=== PATIENT | male | born 1990 | race Caucasian/White ===

== ENCOUNTER 2017-02-09 00:05 | Emergency (ER) | payer MEDICAID ==
[~2017-02-09] VITALS: Ht 177.8 cm; Wt 90.7 kg
--- NOTE | 2017-02-09 00:07 | NUR ---
Patient to ER bed 7 to gown for evaluation. Side rails up. Report given to Filipe OLIVARES.
[2017-02-09 00:10] VITALS: BP 127/80; PULSE 89; RESP 18; TEMP 98.3; O2SAT 99
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
--- NOTE | 2017-02-09 00:20 | NUR ---
MD Worley at bedside examining pt
--- NOTE | 2017-02-09 00:20 | NUR ---
Sudeep Jasso were called and will be coming to ER soon.
[2017-02-09] MEDS ORDERED: DIPH-TET-PERTUS Vaccine 0.5 ML VIAL (ADACEL) I.M. ONE (00:30)
[2017-02-09] MEDS ORDERED: LIDOCAINE 1% 10 MG/ML, 20 ML MDV INJ ONE (00:30)
--- NOTE | 2017-02-09 01:20 | NUR ---
at bedside and patient refused to file report.
--- NOTE | 2017-02-09 01:20 | NUR ---
special technical operations officer arrived at [facility], at bedside discussing with pt and his mother
[2017-02-09 01:30] VITALS: BP 122/78; PULSE 88; RESP 18; TEMP 98.1; O2SAT 100
--- NOTE | 2017-02-09 01:30 | NUR ---
Patient given written and verbal discharge instructions and verbalizes understanding. ER MD discussed with patient the results and treatment provided. Patient in stable condition. ID arm band removed. Rx of Motrin, Bactrim given. Patient educated on pain management and to follow up with PMD. Pain Scale 0/10. Opportunity for questions provided and answered.
== END 2017-02-09 01:30 | disposition home or self-care (01) ==
LOC: SED 00:05
DX: S01.01XA Laceration without foreign body of scalp, initial encounter (principal); S91.011A Laceration without foreign body, right ankle, initial encounter; W25.XXXA Contact with sharp glass, initial encounter; Y93.89 Activity, other specified; Y99.8 Other external cause status; Y92.89 Other specified places as the place of occurrence of the external cause
CPT/HCPCS: 12002; 90471; 90715; 99283; J2001

== ENCOUNTER 2017-04-23 22:47 | Emergency (ER) | payer MEDICAID ==
[~2017-04-23] VITALS: Ht 185.4 cm; Wt 86.2 kg
[2017-04-23 23:00] VITALS: BP_SYST 136
[2017-04-23 23:57] VITALS: BP_SYST 145
== END 2017-04-23 23:57 | disposition home or self-care (01) ==
LOC: SED 22:47
DX: S01.111A Laceration without foreign body of right eyelid and periocular area, initial encounter (principal); S01.412A Laceration without foreign body of left cheek and temporomandibular area, initial encounter; Y04.0XXA Assault by unarmed brawl or fight, initial encounter; Y93.89 Activity, other specified; Y92.89 Other specified places as the place of occurrence of the external cause; Y99.8 Other external cause status
CPT/HCPCS: 70450-TC; 70486-TC; 99284

== ENCOUNTER 2017-05-07 20:25 | Emergency (ER) | payer MEDICAID ==
[~2017-05-07] VITALS: Ht 185.4 cm; Wt 88.5 kg
--- NOTE | 2017-05-07 20:30 | NUR ---
Patient to ER bed H1 to gown for evaluation. Side rails up.
--- NOTE | 2017-05-07 20:31 | NUR ---
KELLEE Marmolejo at bedside examining patient.
--- NOTE | 2017-05-07 20:32 | NUR ---
Patient AAO x4, sitting in bed in hallway, here for suture removal from lac repair on right side of patient's face, skin pink and edges well approximated, no redness, no swelling, and no pain or drainage to area. Will continue to monitor.
--- NOTE | 2017-05-07 20:35 | NUR ---
RN PERINATAL at bedside removing sutures, patient tolerating well.
[2017-05-07 20:37] VITALS: BP_SYST 128
[2017-05-07 20:41] VITALS: BP_SYST 128
--- NOTE | 2017-05-07 20:41 | NUR ---
Patient given written and verbal discharge instructions and verbalizes understanding. ER MD discussed with patient the results and treatment provided. Patient in stable condition. ID arm band removed. Rx of bacitracin given. Patient educated on pain management and to follow up with PMD. Pain Scale 0/10. Opportunity for questions provided and answered.
[2017-05-07] MEDS ORDERED: BACITRACIN 1 GM OINT TP ONE (20:45)
== END 2017-05-07 20:41 | disposition home or self-care (01) ==
LOC: SED 20:25
DX: S01.411D Laceration without foreign body of right cheek and temporomandibular area, subsequent encounter (principal); S01.111D Laceration without foreign body of right eyelid and periocular area, subsequent encounter; F17.210 Nicotine dependence, cigarettes, uncomplicated; Y04.0XXD Assault by unarmed brawl or fight, subsequent encounter; Y92.89 Other specified places as the place of occurrence of the external cause; Y99.8 Other external cause status
CPT/HCPCS: 99282

== ENCOUNTER 2017-10-30 20:11 | Emergency (ER) | payer MEDICAID ==
[~2017-10-30] VITALS: Ht 182.9 cm; Wt 86.2 kg
[2017-10-30 20:16] VITALS: BP_SYST 120
[2017-10-30 23:16] VITALS: BP_SYST 116
== END 2017-10-30 23:30 | disposition home or self-care (01) ==
LOC: SED 20:11
DX: M54.9 Dorsalgia, unspecified (principal); F17.210 Nicotine dependence, cigarettes, uncomplicated; V49.9XXA Car occupant (driver) (passenger) injured in unspecified traffic accident, initial encounter; Y93.89 Activity, other specified; Y92.488 Other paved roadways as the place of occurrence of the external cause; Y99.8 Other external cause status
CPT/HCPCS: 72125-TC; 72128; 72131; 99284

== ENCOUNTER 2018-03-23 14:19 | Emergency (ER) | payer MEDICAID ==
[~2018-03-23] VITALS: Ht 185.4 cm; Wt 90.7 kg
[2018-03-23 14:31] VITALS: BP_SYST 120
[2018-03-23] MEDS ORDERED: ONDANSETRON 4 MG ODT TAB PO ONE (15:00)
[2018-03-23 15:11] VITALS: BP_SYST 114
== END 2018-03-23 15:14 ==
LOC: SED 14:19
DX: F11.23 Opioid dependence with withdrawal (principal); R11.2 Nausea with vomiting, unspecified
CPT/HCPCS: 99283; Q0162

== ENCOUNTER 2018-06-04 11:14 | Emergency (ER) | payer MEDICAID ==
[~2018-06-04] VITALS: Ht 182.9 cm; Wt 90.7 kg
[2018-06-04 11:14] VITALS: BP_SYST 134
[2018-06-04] MEDS ORDERED: ONDANSETRON HCL 4 MG/2 ML VIAL IVP ONE (12:00)
[2018-06-04] MEDS ORDERED: DIPH-TET-PERTUS Vaccine 0.5 ML VIAL (ADACEL) I.M. ONE (12:00)
[2018-06-04] MEDS ORDERED: NACL 0.9% 1,000 ML IV ONE (12:00)
[2018-06-04] MEDS ORDERED: IOHEXOL 100 ML IV ONE (12:24)
[2018-06-04 13:25] LABS: BASOPHILS # (AUTO) 0.1 K/uL (0.0-0.2); BASOPHILS % (AUTO) 0.9 % (0.0-2.0); EOSINOPHILS # (AUTO) 0.2 K/uL (0.0-0.4); EOSINOPHILS % (AUTO) 2.5 % (0.0-4.0); HEMATOCRIT 34.8 % (36-54); HEMOGLOBIN 11.9 g/dL (14.0-18.0); LYMPHOCYTES # (AUTO) 1.7 K/uL (1.0-5.5); LYMPHOCYTES % (AUTO) 22.9 % (20.5-51.5); MEAN CORPUSCULAR HEMOGLOBIN 30 pg (27-31); MEAN CORPUSCULAR HGB CONC 34 % (32-36); MEAN CORPUSCULAR VOLUME 88 fL (79.0-98.0); MONOCYTES # (AUTO) 0.5 K/uL (0.0-1.0); MONOCYTES % (AUTO) 6.3 % (1.7-9.3); NEUTROPHILS # (AUTO) 5.1 K/uL (1.8-7.7); NEUTROPHILS % (AUTO) 67.4 % (40.0-70.0); PLATELET COUNT (AUTO) 266 K/uL (130-430); RED BLOOD CELL COUNT(AUTO) 3.95 MIL/uL (4.2-6.2); RED CELL DISTRIBUTION WIDTH 14.1 % (9.0-15.0); WHITE BLOOD COUNT (AUTO) 7.6 K/uL (4.8-10.8)
[2018-06-04 13:30] LABS: ALANINE AMINOTRANSFERASE 36 U/L (12-78); ALBUMIN 3.1 g/dL (3.4-4.8); ANION GAP 5 (5-15); ASPARTATE AMINOTRANSFERASE 37 U/L (10-37); CALCIUM 8.2 mg/dL (8.4-11.0); CHLORIDE 107 mmol/L (98-107); CREATININE 1.05 mg/dL (0.55-1.30); GLUCOSE 95 mg/dL (70-99); POTASSIUM 3.6 mmol/L (3.5-5.1); SODIUM SERUM 142 mmol/L (136-145); TOTAL BILIRUBIN 0.3 mg/dL (0.0-1.0); UREA NITROGEN, BLOOD 15 mg/dL (8-21)
[2018-06-04 13:32] LABS: ALCOHOL, BLOOD < 3 mg/dL (<10); GFR AFRICAN AMERICAN 109 mL/min (>90)
[2018-06-04 16:50] VITALS: BP_SYST 141
== END 2018-06-04 16:50 | disposition home or self-care (01) ==
LOC: SED 11:14
DX: S13.4XXA Sprain of ligaments of cervical spine, initial encounter (principal); S20.212A Contusion of left front wall of thorax, initial encounter; S30.1XXA Contusion of abdominal wall, initial encounter; S80.11XA Contusion of right lower leg, initial encounter; S40.812A Abrasion of left upper arm, initial encounter; S40.811A Abrasion of right upper arm, initial encounter; S09.90XA Unspecified injury of head, initial encounter; F17.210 Nicotine dependence, cigarettes, uncomplicated; R42 Dizziness and giddiness; V00.131A Fall from skateboard, initial encounter; Y93.51 Activity, roller skating (inline) and skateboarding; Y92.89 Other specified places as the place of occurrence of the external cause; Y99.8 Other external cause status
CPT/HCPCS: 36415; 70450; 71045; 72125; 73590; 73600; 74177; 80053; 85025; 90471; 90715; 93005; 96361; 96374; 99285; G0482; J2405; J7030; Q9967

== ENCOUNTER 2018-06-21 18:02 | Inpatient (IN) | payer MEDICAID ==
[~2018-06-21] VITALS: Ht 185.4 cm; Wt 94.1 kg
[2018-06-21 18:02] VITALS: BP_SYST 146
[2018-06-21 18:53] LABS: BASOPHILS % (AUTO) 0.3 % (0.0-2.0); EOSINOPHILS # (AUTO) 0.1 K/uL (0.0-0.4); EOSINOPHILS % (AUTO) 0.8 % (0.0-4.0); HEMATOCRIT 37.6 % (36-54); HEMOGLOBIN 13.1 g/dL (14.0-18.0); LYMPHOCYTES % (AUTO) 7.1 % (20.5-51.5); MEAN CORPUSCULAR HEMOGLOBIN 31 pg (27-31); MEAN CORPUSCULAR HGB CONC 35 % (32-36); MEAN CORPUSCULAR VOLUME 87 fL (79.0-98.0); MONOCYTES # (AUTO) 0.7 K/uL (0.0-1.0); MONOCYTES % (AUTO) 5.2 % (1.7-9.3); NEUTROPHILS # (AUTO) 12.2 K/uL (1.8-7.7); NEUTROPHILS % (AUTO) 86.6 % (40.0-70.0); PLATELET COUNT (AUTO) 336 K/uL (130-430); RED CELL DISTRIBUTION WIDTH 13.4 % (9.0-15.0)
[2018-06-21 18:59] LABS: ANION GAP 3 (5-15); CALCIUM 8.5 mg/dL (8.4-11.0); CHLORIDE 102 mmol/L (98-107); CREATININE 0.87 mg/dL (0.55-1.30); GLUCOSE 88 mg/dL (70-99); POTASSIUM 3.7 mmol/L (3.5-5.1); SODIUM SERUM 135 mmol/L (136-145); UREA NITROGEN, BLOOD 15 mg/dL (8-21)
[2018-06-21 19:00] LABS: GFR AFRICAN AMERICAN 135 mL/min (>90); PROTHROMBIN TIME 9.9 SECS (9.5-12.5)
[2018-06-21] MEDS ORDERED: ACETAMINOPHEN 500 MG TABLET PO ONE (19:00)
[2018-06-21] MEDS ORDERED: NACL 0.9% 1,000 ML IV ONE ×2 (19:00→20:15)
[2018-06-21 19:15] LABS: ALANINE AMINOTRANSFERASE 32 U/L (12-78); ALBUMIN 3.5 g/dL (3.4-4.8); ASPARTATE AMINOTRANSFERASE 22 U/L (10-37); FREE T4 (FREE THYROXINE) 0.6 ng/dL (0.6-1.6); TOTAL BILIRUBIN 0.7 mg/dL (0.0-1.0)
[2018-06-21 19:17] LABS: ALCOHOL, BLOOD < 3 mg/dL (<10)
[2018-06-21] MEDS ORDERED: VANCOMYCIN HCL 1,000 MG in NS 250 ML IV ONE (20:15)
[2018-06-21] MEDS ORDERED: KETOROLAC TROMETHAMINE 30 MG VIAL IVP ONE (20:15)
[2018-06-21] MEDS ORDERED: PIPERACILLIN/TAZO 3.375 GM in NS 50 ML IV ONE (20:15)
[2018-06-21] MEDS ORDERED: VANCOMYCIN HCL 1000 MG/VIAL IV ONE (20:17)
[2018-06-21] MEDS ORDERED: PIPERACILLIN/TAZOBACTAM 3.375 GM/VIAL (ZOSYN) IV ONE ×2 (20:17→22:34)
[2018-06-21] MEDS ORDERED: HYDROcodone/ACETAMIN 5-325 MG TAB (NORCO/ VICODIN) PO PRN (20:30)
[2018-06-21] MEDS ORDERED: LORazepam 1 MG TABLET PO SCH (20:30)
[2018-06-21 21:00] LABS: BILIRUBIN,URINE NEGATIVE (NEGATIVE); BLOOD, URINE NEGATIVE (NEGATIVE); CLARITY/URINE CLEAR (CLEAR); COLOR,URINE YELLOW (YELLOW); GLUCOSE,URINE NEGATIVE (NEGATIVE); KETONES,URINE TRACE (NEGATIVE); LEUKOCYTE ESTERASE ,URINE NEGATIVE (NEGATIVE); NITRITE, URINE NEGATIVE (NEGATIVE); PROTEIN URINE NEGATIVE (NEGATIVE); UROBILINOGEN,URINE 0.2 (0.2-1.0)
[2018-06-21] MEDS ORDERED: MORPHINE 2 MG/ML INJ. SYRINGE IVP ONE (21:00)
[2018-06-21 21:09] LABS: BARBITURATE, URINE NEGATIVE (NEG <=200); METHAMPHETAMINES SCREEN,URINE POSITIVE (NEG <=500); URINE AMPHETAMINE POSITIVE (NEG <=500)
[2018-06-21 21:10] LABS: BENZODIAZEPINE, URINE NEGATIVE (NEG <=150); CANNABINOID, URINE NEGATIVE (NEG <=50); COCAINE, URINE NEGATIVE (NEG <=150); OPIATE, URINE POSITIVE (NEG <=100); PHENCYCLIDINE SCREEN,URINE NEGATIVE (NEG <=25); UR TRICYCLIC ANTIDEPRESSANTS NEGATIVE (NEG <=300); URINE METHADONE NEGATIVE (NEG <=200); URINE OXYCODONE SCREEN NEGATIVE (NEG <=100); URINE PROPOXYPHENE SCREEN NEGATIVE (NEG <=300)
[2018-06-21 21:24] VITALS: BP_SYST 137
[2018-06-21] MEDS: NACL 0.9% 1,000 ML IV SCH (21:55)
[2018-06-22 00:09] VITALS: BP_SYST 130
[2018-06-22] MEDS: PIPERACILLIN/TAZO 3.375/DEX-IS 50 ML IV SCH ×4 (00:29→17:17)
[2018-06-22] MEDS ORDERED: LORazepam 1 MG TABLET PO SCH (06:00)
[2018-06-22] MEDS: LORazepam 2 MG/ML VIAL IVP PRN ×2 (06:05→16:24)
[2018-06-22] MEDS: NACL 0.9% 1,000 ML IV SCH ×4 (06:10→23:59)
[2018-06-22 08:00] VITALS: BP_SYST 129
[2018-06-22] MEDS: VANCOMYCIN HCL 1,500 MG in NS 250 ML IV SCH ×2 (11:41→18:42)
[2018-06-22 12:15] VITALS: BP_SYST 127
[2018-06-22] MEDS ORDERED: MORPHINE 2 MG/ML INJ. SYRINGE ONE (13:56)
[2018-06-22] MEDS ORDERED: MUPIROCIN 2% TOPICAL OINTMENT 22 GM NS PRN (14:00)
[2018-06-22] MEDS ORDERED: ZOLPIDEM TARTRATE 5 MG TABLET PO PRN (14:00)
[2018-06-22] MEDS ORDERED: ACETAMINOPHEN 325 MG TABLET PO PRN (14:00)
[2018-06-22] MEDS ORDERED: MAGNESIUM SULFATE 50 ML IV PRN (14:00)
[2018-06-22] MEDS ORDERED: POTASSIUM CHLORIDE 20 MEQ TAB.PRT.SR PO PRN (14:00)
[2018-06-22] MEDS ORDERED: DOCUSATE SODIUM 100 MG CAPSULE PO PRN (14:00)
[2018-06-22] MEDS ORDERED: ONDANSETRON HCL 4 MG/2 ML VIAL IVP PRN (14:00)
[2018-06-22] MEDS ORDERED: FAMOTIDINE 20 MG TABLET PO ONE (14:30)
[2018-06-22] MEDS ORDERED: LACTULOSE 20 GM/30 ML UDC PO ONE (14:30)
[2018-06-22 14:34] LABS: CALCIUM 8.6 mg/dL (8.4-11.0); CREATININE 1.13 mg/dL (0.55-1.30); POTASSIUM 3.5 mmol/L (3.5-5.1)
[2018-06-22 15:04] LABS: BASOPHILS % (AUTO) 0.2 % (0.0-2.0); EOSINOPHILS # (AUTO) 0.1 K/uL (0.0-0.4); EOSINOPHILS % (AUTO) 0.6 % (0.0-4.0); HEMATOCRIT 42.8 % (36-54); HEMOGLOBIN 14.8 g/dL (14.0-18.0); LYMPHOCYTES # (AUTO) 1.9 K/uL (1.0-5.5); LYMPHOCYTES % (AUTO) 10.4 % (20.5-51.5); MEAN CORPUSCULAR HEMOGLOBIN 30 pg (27-31); MEAN CORPUSCULAR HGB CONC 34 % (32-36); MEAN CORPUSCULAR VOLUME 88 fL (79.0-98.0); MONOCYTES % (AUTO) 5.3 % (1.7-9.3); NEUTROPHILS % (AUTO) 83.5 % (40.0-70.0); PLATELET COUNT (AUTO) 366 K/uL (130-430); RED BLOOD CELL COUNT(AUTO) 4.87 MIL/uL (4.2-6.2); RED CELL DISTRIBUTION WIDTH 13.4 % (9.0-15.0)
[2018-06-22] MEDS: DIPHENHYDRAMINE HCL 25 MG CAPSULE PO SCH ×2 (16:23→21:13)
[2018-06-22 16:25] VITALS: BP_SYST 108
[2018-06-22] MEDS ORDERED: cloNIDine HCL 0.1 MG TABLET ONE (18:18)
[2018-06-22] MEDS ORDERED: FAMOTIDINE 20 MG TABLET PO SCH (21:00)
[2018-06-22] MEDS: FAMOTIDINE 20 MG TABLET PO SCH (21:13)
[2018-06-22] MEDS: LACTULOSE 20 GM/30 ML UDC PO SCH (21:13)
[2018-06-22] MEDS: MORPHINE 2 MG/ML INJ. SYRINGE IVP PRN (22:14)
[2018-06-22 22:15] VITALS: BP_SYST 125
[2018-06-23] VITALS: BP_SYST 137
[2018-06-23] MEDS: MORPHINE 2 MG/ML INJ. SYRINGE IVP PRN ×3 (00:53→17:34)
[2018-06-23] MEDS: NACL 0.9% 1,000 ML IV SCH ×2 (03:14→08:57)
[2018-06-23] MEDS: VANCOMYCIN HCL 1,500 MG in NS 250 ML IV SCH ×2 (03:14→10:56)
[2018-06-23] MEDS: LORazepam 2 MG/ML VIAL IVP PRN (04:42)
[2018-06-23 05:29] LABS: BASOPHILS # (AUTO) 0.1 K/uL (0.0-0.2); BASOPHILS % (AUTO) 0.7 % (0.0-2.0); EOSINOPHILS # (AUTO) 0.1 K/uL (0.0-0.4); HEMATOCRIT 40.5 % (36-54); HEMOGLOBIN 13.6 g/dL (14.0-18.0); LYMPHOCYTES # (AUTO) 1.8 K/uL (1.0-5.5); LYMPHOCYTES % (AUTO) 15.8 % (20.5-51.5); MEAN CORPUSCULAR HEMOGLOBIN 30 pg (27-31); MEAN CORPUSCULAR HGB CONC 34 % (32-36); MEAN CORPUSCULAR VOLUME 88 fL (79.0-98.0); MONOCYTES # (AUTO) 0.6 K/uL (0.0-1.0); MONOCYTES % (AUTO) 5.4 % (1.7-9.3); NEUTROPHILS # (AUTO) 8.7 K/uL (1.8-7.7); NEUTROPHILS % (AUTO) 77.1 % (40.0-70.0); PLATELET COUNT (AUTO) 333 K/uL (130-430); RED BLOOD CELL COUNT(AUTO) 4.58 MIL/uL (4.2-6.2); RED CELL DISTRIBUTION WIDTH 13.5 % (9.0-15.0); WHITE BLOOD COUNT (AUTO) 11.3 K/uL (4.8-10.8)
[2018-06-23 05:43] LABS: CALCIUM 8.5 mg/dL (8.4-11.0); CREATININE 0.9 mg/dL (0.55-1.30); POTASSIUM 3.4 mmol/L (3.5-5.1)
[2018-06-23 05:49] LABS: PHOSPHORUS 2.5 mg/dL (2.7-4.5)
[2018-06-23] MEDS: PIPERACILLIN/TAZO 3.375/DEX-IS 50 ML IV SCH ×2 (06:21)
[2018-06-23 08:13] VITALS: BP_SYST 118
[2018-06-23] MEDS: LACTULOSE 20 GM/30 ML UDC PO SCH (08:25)
[2018-06-23] MEDS: DIPHENHYDRAMINE HCL 25 MG CAPSULE PO SCH ×2 (08:25→14:29)
[2018-06-23] MEDS: FAMOTIDINE 20 MG TABLET PO SCH (08:25)
[2018-06-23 12:40] VITALS: BP_SYST 140
[2018-06-23] MEDS: CLINDAMYCIN 600 MG in D5W 50 ML IV SCH ×2 (12:58→18:22)
[2018-06-23 16:35] VITALS: BP_SYST 112
== END 2018-06-23 21:15 | disposition left against medical advice (07) | DRG 720 ==
LOC: SED 18:02 → STU 20:25 → SMU 06-23 09:39
PROVIDERS: ADMIT Family Medicine; ATTEND Family Medicine
DX: A41.9 Sepsis, unspecified organism (principal); G92 Toxic encephalopathy; L02.413 Cutaneous abscess of right upper limb; T43.621A Poisoning by amphetamines, accidental (unintentional), initial encounter; T40.1X1A Poisoning by heroin, accidental (unintentional), initial encounter; K72.90 Hepatic failure, unspecified without coma; E87.1 Hypo-osmolality and hyponatremia; L03.113 Cellulitis of right upper limb; Z53.21 Procedure and treatment not carried out due to patient leaving prior to being seen by health care provider; F41.9 Anxiety disorder, unspecified; Y92.89 Other specified places as the place of occurrence of the external cause
CPT/HCPCS: 36415; 71045; 76700-TC; 80048; 80053; 80202-TC; 80307; 81003; 82140-TC; 83036; 83605; 83735-TC; 83880; 84100-TC; 84439; 84484; 85025; 85610-TC; 87040-TC; 87081; 93005; 93306; 93971; 96361; 96365; 99285; G0482; J1885; J2060; J2270; J2543; J3370; J3490; J7030; J7050; J7060; Q0163

== ENCOUNTER 2019-09-30 13:42 | Emergency (ER) | payer MEDICAID ==
[~2019-09-30] VITALS: Ht 185.4 cm; Wt 104.3 kg
[2019-09-30 13:42] VITALS: BP_SYST 130
[2019-09-30 14:25] VITALS: BP_SYST 130
== END 2019-09-30 14:21 | disposition home or self-care (01) ==
LOC: SED 13:42
DX: L73.9 Follicular disorder, unspecified (principal); F17.210 Nicotine dependence, cigarettes, uncomplicated; R03.0 Elevated blood-pressure reading, without diagnosis of hypertension
CPT/HCPCS: 99283

== ENCOUNTER 2019-12-18 00:32 | Emergency (ER) | payer MEDICAID ==
[~2019-12-18] VITALS: Ht 185.4 cm; Wt 99.8 kg
[2019-12-18 00:49] VITALS: BP_SYST 125
--- NOTE | 2019-12-18 00:54 | NUR ---
tPatient triaged and placed in waiting room. VSS and patient appears in no acute distress at this time. Accompanied by self, awaiting available bed, and MD notified of need for MSE.
--- NOTE | 2019-12-18 01:55 | NUR ---
Patient to ER bed 03 to gown for evaluation. Side rails up. Report given to MARSHALL Chau.
--- NOTE | 2019-12-18 01:55 | NUR ---
Note lex in ED - 12/18/19 at 0155 by [email or web address] Patient to ER bed [address] [facility] for evaluation. Side rails up. Report given to MARSHALL Chau.
--- NOTE | 2019-12-18 02:12 | NUR ---
Patient AAO x 4 ambulates to ER bed 03 with complaints of 10/10 R arm pain with tingling radiating to R shoulder and chest area. Redness and edema is observed on R antecubital aspect of R arm. Slurred speech noted, but patient is in no acute distress. Even chest rise and fall with respirations. Will continue to monitor.
--- NOTE | 2019-12-18 02:32 | NUR ---
ER Dr. Bonilla at bedside examining patient.
[2019-12-18] MEDS ORDERED: VANCOMYCIN HCL 1,000 MG in NS 250 ML IV ONE (02:45)
[2019-12-18] MEDS ORDERED: KETOROLAC TROMETHAMINE 30 MG VIAL IVP ONE (02:45)
[2019-12-18] MEDS ORDERED: VANCOMYCIN HCL 1000 MG/VIAL IV ONE (02:58)
--- NOTE | 2019-12-18 03:00 | NUR ---
Pt resting comfortably in bed, will cont. to monitor.
[2019-12-18] MEDS ORDERED: SULFAMETHOXAZOLE/TRIMETHOPR DS 1 TABLET PO ONE (03:15)
[2019-12-18 03:24] LABS: BASOPHILS # (AUTO) 0.1 K/uL (0.0-0.2); BASOPHILS % (AUTO) 0.8 % (0.0-2.0); EOSINOPHILS # (AUTO) 0.2 K/uL (0.0-0.4); EOSINOPHILS % (AUTO) 2.1 % (0.0-4.0); HEMATOCRIT 38.3 % (36-54); LYMPHOCYTES # (AUTO) 1.8 K/uL (1.0-5.5); LYMPHOCYTES % (AUTO) 18.9 % (20.5-51.5); MEAN CORPUSCULAR HEMOGLOBIN 31 pg (27-31); MEAN CORPUSCULAR HGB CONC 34 % (32-36); MEAN CORPUSCULAR VOLUME 93 fL (79.0-98.0); MONOCYTES # (AUTO) 0.8 K/uL (0.0-1.0); MONOCYTES % (AUTO) 7.9 % (1.7-9.3); NEUTROPHILS # (AUTO) 6.7 K/uL (1.8-7.7); NEUTROPHILS % (AUTO) 70.3 % (40.0-70.0); PLATELET COUNT (AUTO) 270 K/uL (130-430); RED BLOOD CELL COUNT(AUTO) 4.14 MIL/uL (4.2-6.2); RED CELL DISTRIBUTION WIDTH 13.9 % (9.0-15.0); WHITE BLOOD COUNT (AUTO) 9.6 K/uL (4.8-10.8)
--- NOTE | 2019-12-18 04:00 | NUR ---
Pt resting comfortably in bed, will cont. to monitor.
[2019-12-18 05:00] VITALS: BP_SYST 132
--- NOTE | 2019-12-18 05:00 | NUR ---
Patient given written and verbal discharge instructions and verbalizes understanding. ER MD Dr. Bonilla discussed with patient the results and treatment provided. Patient in stable condition. ID arm band removed. IV catheter removed intact and dressing applied, no active bleeding. Rx of motrin and bactrim given. Patient educated on pain management and to follow up with PMD. Pain Scale 0/10. Opportunity for questions provided and answered. Medication side effect fact sheet provided.
[2019-12-19] MEDS ORDERED: IBUP-1970 PO (13:29)
[2019-12-19] MEDS ORDERED: SULF1TAB48 PO (13:29)
== END 2019-12-18 05:00 | disposition home or self-care (01) ==
LOC: SED 00:32
DX: L98.8 Other specified disorders of the skin and subcutaneous tissue (principal); D64.9 Anemia, unspecified; F17.290 Nicotine dependence, other tobacco product, uncomplicated; F12.90 Cannabis use, unspecified, uncomplicated
CPT/HCPCS: 36415; 83605; 85025; 87040; 96365; 96366; 96375; 99283; J1885; J3370

== ENCOUNTER 2019-12-19 01:46 | Inpatient (IN) | payer MEDICAID ==
[~2019-12-19] VITALS: Ht 185.4 cm; Wt 95.3 kg
[2019-12-19 01:49] VITALS: BP_SYST 125
--- NOTE | 2019-12-19 01:49 | NUR ---
Patient triaged and placed in waiting room. VSS and patient appears in no acute distress at this time. Accompanied by SELF, awaiting available bed, and MD notified of need for MSE.
--- NOTE | 2019-12-19 03:30 | NUR ---
CALLED PT NAME IN THE WR.NO ANSWER.
--- NOTE | 2019-12-19 06:32 | NUR ---
Patient to ER bed 4 to gown for evaluation. Side rails up. Report given to JOHANN OLIVARES.
--- NOTE | 2019-12-19 06:35 | NUR ---
Pt presents to ER with c/o abscess on Right AC. Pt states abscess began "a couple days ago." Pt A&Ox4. Pt states he was seen here in emergency room last night for same thing. Pt states abscess has gotten worse since last night. Pt states history of IV drug use. Upon assessment, pt has redness, swelling and clear drainage noted from right arm AC. Pt states pain 5/10. Will continue to monitor.
--- NOTE | 2019-12-19 06:54 | NUR ---
ER Dr. Camacho at bedside examining patient.
[2019-12-19] MEDS ORDERED: KETOROLAC TROMETHAMINE 30 MG VIAL IVP ONE (07:00)
[2019-12-19] MEDS ORDERED: VANCOMYCIN HCL 1,000 MG in NS 250 ML IV ONE ×3 (07:00→13:15)
--- NOTE | 2019-12-19 07:05 | NUR ---
Report received from MARSHALL [place] for continuation of care.
--- NOTE | 2019-12-19 07:18 | NUR ---
Patient is awake, alert, and oriented x4. Patient is complaining of right arm pain and bump. Patient reports that he uses the site to inject heroin and methamphetamines and belives the bump and pain is due to that. Patient reports last time he used the site was a few days ago.
--- NOTE | 2019-12-19 07:20 | NUR ---
Phlebotomy at bedside.
[2019-12-19 07:43] LABS: BASOPHILS # (AUTO) 0.1 K/uL (0.0-0.2); BASOPHILS % (AUTO) 0.6 % (0.0-2.0); EOSINOPHILS # (AUTO) 0.2 K/uL (0.0-0.4); HEMATOCRIT 43.2 % (36-54); HEMOGLOBIN 14.6 g/dL (14.0-18.0); LYMPHOCYTES # (AUTO) 1.3 K/uL (1.0-5.5); LYMPHOCYTES % (AUTO) 14.3 % (20.5-51.5); MEAN CORPUSCULAR HEMOGLOBIN 31 pg (27-31); MEAN CORPUSCULAR HGB CONC 34 % (32-36); MEAN CORPUSCULAR VOLUME 93 fL (79.0-98.0); MONOCYTES # (AUTO) 0.7 K/uL (0.0-1.0); MONOCYTES % (AUTO) 7.4 % (1.7-9.3); NEUTROPHILS # (AUTO) 6.9 K/uL (1.8-7.7); NEUTROPHILS % (AUTO) 75.7 % (40.0-70.0); PLATELET COUNT (AUTO) 278 K/uL (130-430); RED BLOOD CELL COUNT(AUTO) 4.64 MIL/uL (4.2-6.2); WHITE BLOOD COUNT (AUTO) 9.2 K/uL (4.8-10.8)
[2019-12-19] MEDS ORDERED: VANCOMYCIN HCL 1000 MG/VIAL IV ONE ×2 (07:43→22:08)
--- NOTE | 2019-12-19 07:54 | NUR ---
[address] unsuccessful [address] attempts made[address] Dr. Wiggins made aware, states he will order a PICC line.
[2019-12-19 08:03] LABS: CREATININE 0.93 mg/dL (0.55-1.30); POTASSIUM 3.7 mmol/L (3.5-5.1)
[2019-12-19 08:08] LABS: TOTAL BILIRUBIN 1.1 mg/dL (0.0-1.0)
[2019-12-19] MEDS ORDERED: KETOROLAC TROMETHAMINE 60 MG/2 ML VIAL IM ONE (08:15)
--- NOTE | 2019-12-19 09:30 | NUR ---
Patient is sleeping in bed. No signs or symptoms of distress noted.
--- NOTE | 2019-12-19 10:06 | NUR ---
MARSHALL MEANS FOR ORDERS. Addendum: 12/20/19 at 0412 by Bryn Rosas RN WRONG TIME
--- NOTE | 2019-12-19 11:30 | NUR ---
Patient is sleeping in bed. No signs or symptoms of distress noted.
--- NOTE | 2019-12-19 13:26 | NUR ---
Patient will be admitted to care of Dr. Mccray. Admitted to Medsurg unit. No nurses available to take patient, [facility] Belongings list completed. Complete and up to date summary report printed. SBAR report to be given at bedside with opportunity for questions.
[2019-12-19] MEDS ORDERED: IBUP-1970 PO (13:29)
[2019-12-19] MEDS ORDERED: SULF1TAB48 PO (13:29)
--- NOTE | 2019-12-19 13:46 | NUR ---
CONSULTATION PAGED/CALLED Reason for Consultation: RIGHT ARM CELLULITIS Person Who was Notified: TONI Consulting Physician: DR. KENNEDY Service Officer Specialty: ID Ordering Physician: DR. MEANS
--- NOTE | 2019-12-19 14:00 | NUR ---
Patient transferred to [facility] via [facility] with EMT.
--- NOTE | 2019-12-19 14:06 | NUR ---
ADMIT NOTE Received pt from ER to the floor with a diagnosis of cellulitis. Admission process initiated. patient oriented to pain management, safety and call light-teach back done.
[2019-12-19 14:14] VITALS: BP_SYST 110
--- NOTE | 2019-12-19 14:47 | NUR ---
PAIN Patient c/o pain 10/10 on right arm, per patient no taking any pain medication at home. However, the patient slept 4min after the complaint. Checked no PRN pain med was ordered. Will follow up when MD. Patient sleeping good at this time. No acute distress. Safety measure maintained. Call light within reached. Bed locked in low position, side rails up. Continue to monitor.
[2019-12-19 16:00] VITALS: BP_SYST 112
--- NOTE | 2019-12-19 16:20 | NUR ---
SLEEPING Patient remains sleeping. No acute distress. Safety measure maintained. Call light within reached. Bed locked in low position, side rails up. Continue to monitor.
--- NOTE | 2019-12-19 17:52 | NUR ---
MIDLINE Midline inserted by Giovanni PICC RN. Per Giovanni, talked to KELLEE wong to insert midline instead of PICC line.
--- NOTE | 2019-12-19 18:41 | NUR ---
CLOSING NOPE Patient sleeping in the bed. No acute distress. Midline intact to BOBBY, no redness, no swelling, covered with clean and dry transparent dressing. Safety measure maintained. Call light within reached. Bed locked in low position, side rails up, bed alarm on. Will endorse to night nurse.
--- NOTE | 2019-12-19 19:40 | NUR ---
INITIAL NOTES PATIENT IS LAYING IN BED AND STABLE. NO S/S OF RESPIRATORY DISTRESS NOTED. FAMILY IS BY BEDSIDE. PLAN OF CARE WAS DISCUSSED WITH FAMILY AND PATIENT AT THIS TIME. PATIENT WAS UNSUCCESSFUL IN DEMONSTRATING CALL LIGHT USAGE AT THIS TIME. WILL CONTINUE TO MONITOR. BED IS LOCKED, ALARMED, AND AT THE LOWEST POSITION. WILL CONTINUE TO MONITOR.
[2019-12-19 19:45] VITALS: BP_SYST 126
--- NOTE | 2019-12-19 20:30 | NUR ---
DR. MIGUELANGEL OSORIO BY BEDSIDE AT THIS TIME.
[2019-12-19] MEDS ORDERED: ACETAMINOPHEN 325 MG TABLET PO PRN (20:45)
[2019-12-19] MEDS ORDERED: ENOXAPARIN SODIUM 40 MG/0.4 ML SYRINGE SUBCUT SCH (21:00)
--- NOTE | 2019-12-19 21:40 | NUR ---
ROUNDING PATIENT IS SLEEPING IN BED AND STABLE. NO S/S OF RESPIRATORY DISTRESS NOTED. CALL LIGHT IN REACH. BED IS LOCKED, ALARMED, AND AT THE LOWEST POSITION. WILL CONTINUE TO MONITOR.
[2019-12-19] MEDS: HYDROcodone/ACETAMIN 10-325 MG TAB PO PRN (21:52)
--- NOTE | 2019-12-19 22:00 | NUR ---
PATIENT IS GETTING AGITATED/SECURITY CALLED PATIENT IS GETTING AGITATED AT THIS TIME. PATIENT IS YELLING AND SCREAMING. TRIED TO REORIENT AND EDUCATE PATIENT. SECURITY CALLED. WILL CALL MD FOR FURTHER ORDERS.
--- NOTE | 2019-12-19 22:06 | NUR ---
PAGED DR. MEANS FOR ORDERS
[2019-12-19] MEDS ORDERED: CEFEPIME 1 GM/VIAL (MAXIPIME) ONE (22:08)
[2019-12-19] MEDS ORDERED: VANCOMYCIN HCL 500 MG/VIAL IV ONE (22:08)
[2019-12-19] MEDS ORDERED: LORazepam 1 MG TABLET PO PRN (22:30)
[2019-12-19] MEDS ORDERED: KETOROLAC TROMETHAMINE 15 MG VIAL IVP PRN (22:30)
--- NOTE | 2019-12-19 22:33 | NUR ---
COMMUNICATED W/ DR. MEANS. COMMUNICATED W/ DR. MEANS FOR ORDERS. ORDERS RECEIVED. WILL FOLLOW THROUGH
[2019-12-19] MEDS: CEFEPIME 1 GM in D5W 50 ML IV SCH (22:58)
--- NOTE | 2019-12-19 23:40 | NUR ---
ROUNDING PATIENT IS STABLE IN BED. NO S/S OF RESPIRATORY DISTRESS NOTED. CALL LIGHT IN REACH. BED IS LOCKED, ALARMED, AND AT THE LOWEST POSITION. WILL CONTINUE TO MONITOR.
[2019-12-19] MEDS: VANCOMYCIN HCL 1,250 MG in NS 250 ML IV SCH (23:45)
[2019-12-20 00:01] VITALS: BP_SYST 130
--- NOTE | 2019-12-20 01:40 | NUR ---
ROUNDING PATIENT IS SLEEPING IN BED. NO S/S OF RESPIRATORY DISTRESS NOTED. CALL LIGHT IN REACH. BED IS LOCKED, ALARMED, AND AT THE LOWEST POSITION. WILL CONTINUE TO MONITOR.
--- NOTE | 2019-12-20 02:30 | NUR ---
PATIENT PULLED OUT IV AND ULTRASITE INJECTION SITE AT THIS TIME. PATIENT PULLED OUT IV AND ULTRASITE INJECTION SIDE (THE PORT OF THE MIDLINE) AT THIS TIME. PATIENT IS STABLE. NO S/S OF RESPIRATORY. NO S/S OF MAJOR BLEEDING AT THIS TIME. THE MIDLINE IS STILL IN PLACE WITH STERILE DRESSING STILL IN PLACE AND CLEAN. PORT WAS CLEANSED AND NEW ULTRASITE INJECTION SIDE. BLOOD RETURN AND FLUSHED. IV ON THE RIGHT HAND WAS TAKEN OUT. TIP IN TACT AND NO MAJOR BLEEDING. LINENS WERE CHANGED. PATIENT WAS REPOSITION IN BED FOR COMFORT.
[2019-12-20] MEDS: VANCOMYCIN HCL 1,250 MG in NS 250 ML IV SCH ×2 (05:22→14:48)
--- NOTE | 2019-12-20 06:25 | NUR ---
CLOSING NOTES PATIENT IS STABLE AND LAYING IN BED. NO S/S OF RESPIRATORY DISTRESS. CALL LIGHT IN REACH. BED IS LOCKED, ALARMED, AND AT THE LOWEST POSITION. FALL, SAFETY, ASPIRATION, AND RESPIRATORY PRECAUTIONS HAS BEEN IN PLACE THROUGHOUT THE SHIFT. WILL CONTINUE TO MONITOR UNTIL REPORT IS GIVEN TO AM NURSE BY BEDSIDE.
--- NOTE | 2019-12-20 07:30 | NUR ---
OPENING NOPE Patient sleeping in the bed. No acute distress. Midline intact to BOBBY, no redness, no swelling, covered with clean and dry transparent dressing. Safety measure maintained. Call light within reached. Bed locked in low position, side rails up, bed alarm on. Will continue to monitor.
[2019-12-20 07:40] VITALS: BP_SYST 121
[2019-12-20] MEDS: CEFEPIME 1 GM in D5W 50 ML IV SCH (10:15)
[2019-12-20] MEDS: HYDROcodone/ACETAMIN 10-325 MG TAB PO PRN ×2 (10:22→14:49)
--- NOTE | 2019-12-20 10:22 | NUR ---
NORCO GIVEN Patient c/o right arm pain 6/, [place] 10.325mg 1 tab Po given as ordered. No acute distress. Safety measure maintained. Call light within reached. Continue to monitor.
--- NOTE | 2019-12-20 10:55 | NUR ---
PATIENT SIGN THE WAIVE OF SMOKING AND THE PATIENT OUT OF SMOKING WITH ACCOUNTS RECEIVABLE CLERK.
--- NOTE | 2019-12-20 11:25 | NUR ---
SHOWER Patient requested shower, wrapped and covered the midline with plastic bag. Assisted patient to shower room, the patient shower himself and waited outside of shower room. Guarded patient back to his room and resting in the bed. Safety measure maintained. Call light within reached. Bed locked in low position, side rails up. Continue to monitor.
[2019-12-20 12:00] VITALS: BP_SYST 124
--- NOTE | 2019-12-20 12:50 | NUR ---
PATIENT STATED THAT WANT TO LEAVE AND ASK IF OKAY IF HE LEAVE. TOLD THAT DOCTOR NOT ORDER FOR DISCHARGE, IF HE WANTS TO LEAVE, NEED TO SIGN AMA AND EXPLAINED THE RISK OF LEAVE AND THE PATIENT STATED THAT WILL STAY IN THE HOSPITAL.
--- NOTE | 2019-12-20 13:25 | NUR ---
PATIENT WENT OUT OF THE BUILDING WITHOUT NOTIFY ANYONE. FIND THE PATIENT OUTSIDE OF THE HOSPITAL AND SITTING THE BENCH AND SMOKING. PER PATIENT, WILL LEAVE AFTER SMOKING WITH THE IV. TOLD THE PATIENT NEEDS TO REMOVE THE IV BEFORE HE LEAVE. PATIENT CHANGED HIS MIND AND BACK TO HIS ROOM AFTER SMOKING. SAFETY MEASURE MAINTAINED. cALL LIGHT WITHIN REACHED. WILL CONTINUE TO MONITOR.
--- NOTE | 2019-12-20 14:49 | NUR ---
NORCO GIVEN Patient c/o right arm pain 05/04, [place] 10.325mg 1 tab PO given as ordered. No acute distress. Safety measure maintained. Call light within reached. Bed locked in low position, side rails up. Continue to monitor.
--- NOTE | 2019-12-20 15:15 | NUR ---
Patient yelling and screaming in the room pulling IV out. Noticed midline from inner aspect left arm out about 2 to 3 inches as he was pulling. Very impulsive and not following instructions. Pt. requested IV out right away as he was pulling on the IV dressing and IV tube. I pulled the rest of the IV midline line out, put pressure but pt refused to cooperate as he was packing his belongings together and stating "bro I have to go someone is waiting for me outside. I only have five minutes". I asked to signed the AMA form but pt. refused to signed form. Pressure dressing applied to IV site Left upper arm and informed patient to continue to put pressure on above IV site. Pt then came out of the room and left the hospital. MARSHALL Carlson witnessed and signed AMA for as pt refused to signed AMA form. Patient informed if any complication to seek medical help in any hospital.
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
== END 2019-12-20 15:20 | disposition left against medical advice (07) | DRG 383 ==
LOC: SED 01:46 → SMU 13:24
PROVIDERS: ADMIT Family Medicine; ATTEND Family Medicine
DX: L03.113 Cellulitis of right upper limb (principal); I80.8 Phlebitis and thrombophlebitis of other sites; F17.210 Nicotine dependence, cigarettes, uncomplicated; F11.10 Opioid abuse, uncomplicated; B18.2 Chronic viral hepatitis C; Y92.89 Other specified places as the place of occurrence of the external cause; Z59.0 Homelessness; Z79.899 Other long term (current) drug therapy
CPT/HCPCS: 36415; 73060-TC; 73090; 80053; 83605; 85025; 87040-TC; 96365; 96366; 96372; 99285; C1751; C1769; J0692; J1650; J1885; J3370; J7050; J7060

== ENCOUNTER 2020-07-28 02:32 | Emergency (ER) | payer MEDICAID ==
[~2020-07-28] VITALS: Ht 185.4 cm; Wt 95.3 kg
[~2020-07-28 02:32] MED LIST: IBUP-1970 PO; SULF1TAB48 PO
[2020-07-28 02:35] VITALS: BP_SYST 116
--- NOTE | 2020-07-28 02:50 | NUR ---
Patient to ER bed 4 to gown for evaluation. Side rails up.
--- NOTE | 2020-07-28 03:45 | NUR ---
PT C/O OF ABSCESS TO RIGHT FOREARM THAT HAS BEEN THERE FOR ABOUT A WEEK. PT STATES HE CAME TO ER TODAY BECAUSE PAIN IS UNBEARABLE. PT IS IN AND OUT OF SLEEP, HAVING SLOW SPEECH, AND APPEARS GROGGY. PT REPORTS PAIN IS 10/10 BUT WHEN APPROACHED PT WAS SNORING WITHOUT ANY GRIMACING FROM PAIN.
--- NOTE | 2020-07-28 03:58 | NUR ---
ER at bedside examining patient.
--- NOTE | 2020-07-28 04:22 | NUR ---
XRAY AT BEDSIDE.
[2020-07-28] MEDS ORDERED: SULFAMETHOXAZOLE/TRIMETHOPR DS 1 TABLET PO ONE (04:30)
[2020-07-28] MEDS ORDERED: LIDOCAINE 2%, 20 ML MDV INJ ONE (04:30)
[2020-07-28] MEDS ORDERED: KETOROLAC TROMETHAMINE 60 MG/2 ML VIAL IM ONE (04:30)
[2020-07-28] MEDS ORDERED: CEPHALEXIN 500 MG CAPSULE PO ONE (04:30)
[2020-07-28] MEDS ORDERED: LIDOCAINE 1% 10 MG/ML, 20 ML MDV INJ ONE (04:30)
[2020-07-28] MEDS ORDERED: LIDOCAINE/EPI 1% 1:100000 20 ML VIAL INJ ONE (04:45)
--- NOTE | 2020-07-28 05:26 | NUR ---
ULTRASOUND AT BEDSIDE.
[2020-07-28] MEDS ORDERED: NACL 0.9% 1,000 ML IV ONE (06:30)
[2020-07-28] MEDS ORDERED: VANCOMYCIN HCL 1,000 MG in NS 250 ML IV ONE (06:30)
--- NOTE | 2020-07-28 06:30 | NUR ---
Notified ED Admitting regarding pt admit. Will contact insurance verification rep regarding admit/transfer.
--- NOTE | 2020-07-28 06:35 | NUR ---
Medication reconciliation completed with information provided by PATIENT. Any prior medication reconciliation on file was reviewed and corrected.
--- NOTE | 2020-07-28 06:35 | NUR ---
Patient's code status is FULL CODE paperwork completed and placed in chart.
--- NOTE | 2020-07-28 06:41 | NUR ---
PT REFUSING IV AND BLOOD WORK AT THIS TIME. AWARE.
--- NOTE | 2020-07-28 06:45 | NUR ---
DR. SALINAS AT BEDSIDE PERFORMING I&D ON PATIENTS RIGHT FOREARM.
--- NOTE | 2020-07-28 07:10 | NUR ---
REPORT GIVEN TO MARSHALL GARZA FOR CONTINUATION OF CARE.
--- NOTE | 2020-07-28 07:15 | NUR ---
Assumed care of patient, report received from MARSHALL Downing. Pt currently resting in bed, will continue to monitor.
--- NOTE | 2020-07-28 07:34 | NUR ---
Dr. Camacho at bedside for wound debridement. Flushed with NS, packing placed. Pt tolerated well
[2020-07-28 08:45] VITALS: BP_SYST 116
--- NOTE | 2020-07-28 08:48 | NUR ---
Patient does not wish to proceed with medical care recommended by Dr. Jeronimo. Patient given information related to possible complications, up to and including , which could occur as a result of leaving hospital at this time. Patient verbalizes understanding of risks involved leaving against medical advice. Patient has signed AMA form.
[2020-07-28] MEDS ORDERED: BACITRACIN 1 GM OINT TP ONE (08:53)
== END 2020-07-28 08:48 | disposition left against medical advice (07) ==
LOC: SED 02:32
DX: I82.623 Acute embolism and thrombosis of deep veins of upper extremity, bilateral (principal); L02.511 Cutaneous abscess of right hand; L03.113 Cellulitis of right upper limb; F11.90 Opioid use, unspecified, uncomplicated
CPT/HCPCS: 10060; 73090; 93970; 96372; 99284; J1885

== ENCOUNTER 2020-07-29 20:49 | Emergency (ER) | payer MEDICAID ==
[~2020-07-29] VITALS: Ht 185.4 cm; Wt 95.3 kg
[2020-07-29 21:15] VITALS: BP_SYST 144
--- NOTE | 2020-07-29 21:15 | NUR ---
Patient triaged and placed in waiting room. VSS and patient appears in no acute distress at this time. Accompanied by SELF, awaiting available bed, and MD notified of need for MSE.
--- NOTE | 2020-07-29 22:11 | NUR ---
Patient to ER bed 7 to gown for evaluation. Side rails up. Report given to NATASHA OLIVARES.
--- NOTE | 2020-07-29 22:20 | NUR ---
Pt brought in by self. Pt awake, alert, oriented x4. Pt states that he wants to be admitted to the hospital because he had some chest pain and he recently left AMA after a workup indicated the need for possible treatment of bloot clots. Pt denies any other medical complaint at this time.
--- NOTE | 2020-07-29 22:20 | NUR ---
ER at bedside examining patient.
--- NOTE | 2020-07-29 22:20 | NUR ---
Note undone in EDM - 07/29/20 at 2340 by [email or web address] Patient given written and verbal discharge instructions and verbalizes understanding. ER discussed with patient the results and treatment provided. Patient in stable condition. ID arm band removed. No IV Rx of Suboxone, Bactrim, xarelto, cephalexin given. Patient educated on pain management and to follow up with PMD. Pain Scale 2/10. Opportunity for questions provided and answered. Medication side effect fact sheet provided.
[2020-07-29 22:29] LABS: BASOPHILS # (AUTO) 0.1 K/uL (0.0-0.2); BASOPHILS % (AUTO) 1.3 % (0.0-2.0); EOSINOPHILS # (AUTO) 0.3 K/uL (0.0-0.4); EOSINOPHILS % (AUTO) 3.1 % (0.0-4.0); HEMATOCRIT 39.1 % (36-54); HEMOGLOBIN 13.6 g/dL (14.0-18.0); LYMPHOCYTES # (AUTO) 3.1 K/uL (1.0-5.5); MEAN CORPUSCULAR HEMOGLOBIN 31 pg (27-31); MEAN CORPUSCULAR HGB CONC 35 % (32-36); MEAN CORPUSCULAR VOLUME 89 fL (79.0-98.0); MONOCYTES # (AUTO) 0.9 K/uL (0.0-1.0); MONOCYTES % (AUTO) 8.9 % (1.7-9.3); NEUTROPHILS # (AUTO) 5.3 K/uL (1.8-7.7); NEUTROPHILS % (AUTO) 54.7 % (40.0-70.0); PLATELET COUNT (AUTO) 357 K/uL (130-430); RED BLOOD CELL COUNT(AUTO) 4.37 MIL/uL (4.2-6.2); RED CELL DISTRIBUTION WIDTH 13.3 % (9.0-15.0); WHITE BLOOD COUNT (AUTO) 9.6 K/uL (4.8-10.8)
[2020-07-29 22:38] LABS: CREATININE 1.08 mg/dL (0.55-1.30); POTASSIUM 4.1 mmol/L (3.5-5.1)
[2020-07-29] MEDS ORDERED: SULFAMETHOXAZOLE/TRIMETHOPR DS 1 TABLET PO ONE (22:45)
[2020-07-29] MEDS ORDERED: CEPHALEXIN 500 MG CAPSULE PO ONE (22:45)
[2020-07-29] MEDS ORDERED: ACETAMINOPHEN 500 MG TABLET PO ONE (22:45)
[2020-07-29 22:53] LABS: PROTHROMBIN TIME 10.3 SECS (9.5-12.5)
[2020-07-29 23:29] VITALS: BP_SYST 138
--- NOTE | 2020-07-29 23:29 | NUR ---
Patient given written and verbal discharge instructions and verbalizes understanding. ER MD discussed with patient the results and treatment provided. Patient in stable condition. ID arm band removed. No IV Rx of Suboxone, Bactrim, xarelto, cephalexin given. Patient educated on pain management and to follow up with PMD. Pain Scale 2/10. Opportunity for questions provided and answered. Medication side effect fact sheet provided.
== END 2020-07-29 23:29 | disposition home or self-care (01) ==
LOC: SED 20:49
DX: I82.623 Acute embolism and thrombosis of deep veins of upper extremity, bilateral (principal); L02.413 Cutaneous abscess of right upper limb; F11.10 Opioid abuse, uncomplicated
CPT/HCPCS: 36415; 80048; 85025; 85610-TC; 99284

== ENCOUNTER 2020-09-01 02:36 | Emergency (ER) | payer MEDICAID ==
[~2020-09-01] VITALS: Ht 182.9 cm; Wt 90.7 kg
[2020-09-01 02:40] VITALS: BP_SYST 160
--- NOTE | 2020-09-01 02:45 | NUR ---
Placed in room 6 . Placed on equipment monitor phototypesetting, blood pressure machine and pulse oximeter. To gown for exam. Side rails up. Report given to SARAVANAN OLIVARES.
--- NOTE | 2020-09-01 02:50 | NUR ---
PT A&O X4 C/O OF CHEST PAIN 10/10 SHARP NON RADIATING & SHORTNESS OF BREATH THAT STARTED YESTERDAY AROUND 5/6PM. PT REPORTS HIS CHEST PAIN IS STINGING, IS OFF AND ON. PT HX OF DRUG ABUSE. PT DENIES NAUSEA, VOMITING, HEADACHE, BLURRY VISION.
--- NOTE | 2020-09-01 03:04 | NUR ---
XRAY AT BEDSIDE FOR CHEST XRAY
--- NOTE | 2020-09-01 03:10 | NUR ---
ER Dr. AGGARWAL at bedside examining patient.
--- NOTE | 2020-09-01 03:15 | NUR ---
LAB AT BEDSIDE DRAWING BLOOD.
[2020-09-01 03:27] LABS: BASOPHILS # (AUTO) 0.1 K/uL (0.0-0.2); BASOPHILS % (AUTO) 1.1 % (0.0-2.0); EOSINOPHILS # (AUTO) 0.2 K/uL (0.0-0.4); EOSINOPHILS % (AUTO) 2.1 % (0.0-4.0); HEMATOCRIT 38.1 % (36-54); HEMOGLOBIN 13.1 g/dL (14.0-18.0); LYMPHOCYTES # (AUTO) 2.8 K/uL (1.0-5.5); LYMPHOCYTES % (AUTO) 39.3 % (20.5-51.5); MEAN CORPUSCULAR HEMOGLOBIN 31 pg (27-31); MEAN CORPUSCULAR HGB CONC 34 % (32-36); MEAN CORPUSCULAR VOLUME 89 fL (79.0-98.0); MONOCYTES # (AUTO) 0.6 K/uL (0.0-1.0); MONOCYTES % (AUTO) 8.1 % (1.7-9.3); NEUTROPHILS # (AUTO) 3.5 K/uL (1.8-7.7); NEUTROPHILS % (AUTO) 49.4 % (40.0-70.0); PLATELET COUNT (AUTO) 217 K/uL (130-430); RED BLOOD CELL COUNT(AUTO) 4.29 MIL/uL (4.2-6.2); RED CELL DISTRIBUTION WIDTH 13.2 % (9.0-15.0); WHITE BLOOD COUNT (AUTO) 7.2 K/uL (4.8-10.8)
[2020-09-01 03:45] LABS: ANION GAP 7 (5-15); CALCIUM 8.2 mg/dL (8.4-11.0); CHLORIDE 104 mmol/L (98-107); CREATININE 0.95 mg/dL (0.55-1.30); GLUCOSE 111 mg/dL (70-99); POTASSIUM 3.7 mmol/L (3.5-5.1); SODIUM SERUM 141 mmol/L (136-145); UREA NITROGEN, BLOOD 18 mg/dL (8-21)
[2020-09-01 03:51] LABS: ALANINE AMINOTRANSFERASE 50 U/L (12-78); ALBUMIN 3.5 g/dL (3.4-4.8); ASPARTATE AMINOTRANSFERASE 37 U/L (10-37); TOTAL BILIRUBIN 0.4 mg/dL (0.0-1.0)
[2020-09-01 03:52] LABS: ALCOHOL, BLOOD < 3 mg/dL (<10); GFR AFRICAN AMERICAN 120 mL/min (>90)
--- NOTE | 2020-09-01 04:00 | NUR ---
URINE COLLECTED AND SENT TO LAB.
[2020-09-01 04:14] LABS: BILIRUBIN,URINE NEGATIVE (NEGATIVE); BLOOD, URINE NEGATIVE (NEGATIVE); CLARITY/URINE CLEAR (CLEAR); COLOR,URINE YELLOW (YELLOW); GLUCOSE,URINE NEGATIVE (NEGATIVE); KETONES,URINE NEGATIVE (NEGATIVE); LEUKOCYTE ESTERASE ,URINE NEGATIVE (NEGATIVE); NITRITE, URINE NEGATIVE (NEGATIVE); PROTEIN URINE NEGATIVE (NEGATIVE)
[2020-09-01 04:25] LABS: BARBITURATE, URINE NEGATIVE (NEG <=200); BENZODIAZEPINE, URINE NEGATIVE (NEG <=150); CANNABINOID, URINE NEGATIVE (NEG <=50); COCAINE, URINE NEGATIVE (NEG <=150); METHAMPHETAMINES SCREEN,URINE POSITIVE (NEG <=500); OPIATE, URINE POSITIVE (NEG <=100); PHENCYCLIDINE SCREEN,URINE NEGATIVE (NEG <=25); UR TRICYCLIC ANTIDEPRESSANTS NEGATIVE (NEG <=300); URINE AMPHETAMINE POSITIVE (NEG <=500); URINE METHADONE NEGATIVE (NEG <=200); URINE OXYCODONE SCREEN NEGATIVE (NEG <=100); URINE PROPOXYPHENE SCREEN NEGATIVE (NEG <=300)
[2020-09-01] MEDS ORDERED: LORazepam 2 MG/ML VIAL IVP ONE (05:30)
[2020-09-01] MEDS ORDERED: NITROGLYCERIN 0.4 MG TAB.SUBL SL ONE (05:30)
--- NOTE | 2020-09-01 05:37 | NUR ---
ATIVAN 1MG GIVEN IM PER MD ORDERS. NITROSTAT HELD DUE TO PTS BLOOD PRESSURE. MD AWARE.
--- NOTE | 2020-09-01 06:42 | NUR ---
lab at bedside for blood draw.
--- NOTE | 2020-09-01 07:06 | NUR ---
report given to MARSHALL rodriguez for continuation of care.
--- NOTE | 2020-09-01 07:10 | NUR ---
Assumed care of patient, report received from MARSHALL Downing. Pt currently resting in bed, will continue to monitor.
[2020-09-01 08:04] VITALS: BP_SYST 104
--- NOTE | 2020-09-01 08:05 | NUR ---
Patient given written and verbal discharge instructions and verbalizes understanding. ER MD discussed with patient the results and treatment provided. Patient in stable condition. ID arm band removed. No prescriptions given. Patient educated on pain management and to follow up with PMD. Pain Scale 0. Opportunity for questions provided and answered. Medication side effect fact sheet provided.
== END 2020-09-01 08:05 | disposition home or self-care (01) ==
LOC: SED 02:36
DX: R07.89 Other chest pain (principal)
CPT/HCPCS: 36415; 71045; 80053; 80307; 81003; 82550; 83880; 84484; 85025; 93005; 96374; 99285; G0482; J2060

== ENCOUNTER 2024-04-07 10:07 | Emergency (ER) | payer MEDICAID ==
[~2024-04-07] VITALS: Ht 167.6 cm; Wt 90.7 kg
[2024-04-07 10:16] VITALS: BP_SYST 132; PULSE 78; RESP 18; TEMP 98.3; O2SAT 98
[2024-04-07 11:30] LABS: BASOPHILS # (AUTO) 0.1 K/uL (0.0-0.2); BASOPHILS % (AUTO) 0.7 % (0.0-2.0); EOSINOPHILS # (AUTO) 0.2 K/uL (0.0-0.4); EOSINOPHILS % (AUTO) 2.2 % (0.0-4.0); HEMATOCRIT 34.8 % (36-54); LYMPHOCYTES # (AUTO) 1.5 K/uL (1.0-5.5); LYMPHOCYTES % (AUTO) 20.4 % (20.5-51.5); MEAN CORPUSCULAR HEMOGLOBIN 29 pg (27-31); MEAN CORPUSCULAR HGB CONC 34 % (32-36); MEAN CORPUSCULAR VOLUME 85 fL (79.0-98.0); MONOCYTES # (AUTO) 0.3 K/uL (0.0-1.0); MONOCYTES % (AUTO) 4.7 % (1.7-9.3); NEUTROPHILS # (AUTO) 5.1 K/uL (1.8-7.7); PLATELET COUNT (AUTO) 332 K/uL (130-430); RED CELL DISTRIBUTION WIDTH 14.4 % (9.0-15.0); WHITE BLOOD COUNT (AUTO) 7.1 K/uL (4.8-10.8)
[2024-04-07 11:49] LABS: CALCIUM 8.4 mg/dL (8.4-11.0); CREATININE 0.96 mg/dL (0.55-1.30)
[2024-04-07] MEDS ORDERED: CEPH-548 PO (16:58)
[2024-04-07] MEDS ORDERED: SULF1TAB48 PO (16:58)
[2024-04-07] MEDS: HYDROcodone/ACETAMIN 10-325 MG TAB PO ONE (17:37)
[2024-04-07] MEDS: KETOROLAC TROMETHAMINE 60 MG/2 ML VIAL IM ONE (17:37)
[2024-04-07 17:40] VITALS: BP_SYST 132; PULSE 78; RESP 18; TEMP 98.3; O2SAT 98
== END 2024-04-07 17:25 | disposition home or self-care (01) ==
LOC: SED 10:07
DX: L03.116 Cellulitis of left lower limb (principal); L03.115 Cellulitis of right lower limb; F11.20 Opioid dependence, uncomplicated; F17.200 Nicotine dependence, unspecified, uncomplicated
CPT/HCPCS: 99285; 93970; 80048; 85025; 36415; 96372; 83605; J1885